=== PATIENT | female | born 1955 | race Caucasian/White ===

== ENCOUNTER 2016-09-04 11:48 | Emergency (ER) | payer OTHER ==
[~2016-09-04] VITALS: Wt 64.5 kg
[~2016-09-04 11:48] MED LIST: CALC-143 PO
[2016-09-04] MEDS ORDERED: IBUPROFEN 600 MG TAB PO ONE (13:30)
--- NOTE | 2016-09-04 13:52 | RADRPT ---
PROCEDURE: XR Right Foot. CLINICAL INDICATION: Trauma due to a fall. Right foot pain. TECHNIQUE: Three views. Frontal, lateral, and oblique. COMPARISON: None. FINDINGS: There is no fracture or dislocation. The soft tissues are normal. Articular surfaces are intact. There is no lytic or blastic lesion. There is no radiopaque foreign body. IMPRESSION: 1. Normal images of the right foot. RPTAT: QQ .Jorge A Bonner MD, MD Date Time Electronically viewed and signed by .Jorge A Bonner MD, on 09/04/2016 13:52 .R/
--- NOTE | 2016-09-04 13:52 | RADRPT ---
PROCEDURE: XR Right Ankle. CLINICAL INDICATION: Trauma. Lateral right ankle pain. TECHNIQUE: 3 views. Frontal, lateral, and oblique. COMPARISON: None. FINDINGS: There is no fracture or dislocation. The soft tissues are normal. Articular surfaces are intact. There is no lytic or blastic lesion. There is no radiopaque foreign body. IMPRESSION: 1. Normal images of the right ankle. RPTAT: QQ .Jorge A Bonner MD, MD Date Time Electronically viewed and signed by .Jorge A Bonner MD, MD on 09/04/2016 13:52 .R/
[2016-09-04] MEDS ORDERED: IBUP400T22 PO (14:23)
--- NOTE | 2016-09-04 14:38 | ERD ---
ER Documentation Chief Complaint Date/Time DATE: 09/04/16 TIME: 14:32 Chief Complaint RIGHT FOOT PAIN/SWELLING, NO INJURY HPI Patient is a 61-year-old female who presents to the emergency department with right foot pain and swelling 1 week. Patient has any trauma or falls. Patient states she has been putting Arnica gel on the affected with some alleviation of symptoms. Patient denies any fevers or chills. Patient denies any any warmth, redness, active discharge or bleeding. Patient is able to ambulate without any difficulty. Patient is also complaining of mild sore throat. Patient states her throat pain started 2 days ago. Patient denies any trismus, drooling or hyperextension of her neck. Patient denies any cough, rhinorrhea, abdominal pain, nausea, vomiting. Patient denies taking any pain medication. ROS All systems reviewed and are negative except as per history of present illness. Medications Home Meds Active Scripts Ibuprofen* (Motrin*) 400 Mg Tab, 400 MG PO Q6, #30 TAB Prov:KEELY MONTGOMERY PA-C 09/04/16 Reported Medications Calcium Citrate/Vitamin D (Citracal-Vitamin D 200 MG-250) 1 Each Tablet, 1 EACH PO BID, TAB 02/22/15 Allergies Allergies: Coded Allergies: No Known Allergy (Unverified , 09/04/16) PMhx/Soc History of Surgery: Yes (4 C-SECTIONS) Anesthesia Reaction: No Hx Neurological Disorder: No Hx Respiratory Disorders: No Hx Cardiac Disorders: Yes (HTN) Hx Psychiatric Problems: No Hx Miscellaneous Medical Probl: Yes Hx Alcohol Use: No Hx Substance Use: No Hx Tobacco Use: No Smoking Status: Never smoker FmHx Family History: No diabetes Physical Exam Vitals Vital Signs Date Time Temp Pulse Resp B/P Pulse Ox O2 Delivery O2 Flow Rate FiO2 09/04/16 14:44 73 18 137/64 99 Room Air 09/04/16 11:54 99.1 109 17 142/67 98 Physical Exam GENERAL: Well-developed, well-nourished female. Appears in no acute distress. HEAD: Normocephalic, atraumatic. No deformities or ecchymosis. EYE: Pupils equal, round, and reactive to light. EOMs intact. No conjunctival erythema. No eye discharge. ENT: External ear without any masses or tenderness. Oropharynx is pink without any tonsillar erythema or exudates. No uvula deviation. No kissing tonsils. NECK: Supple. No meningismus. Normal ROM of the neck. LUNG: Clear to auscultation bilaterally. No rhonchi, wheezing, rales or coarse breath sounds. HEART: Regular rate and rhythm. No murmurs, rubs or gallops. BACK: No midline tenderness. EXTREMITIES: Equal pulses bilaterally. No peripheral clubbing, cyanosis or edema. No unilateral leg swelling. NEUROLOGIC: Alert and oriented to person, place and time. Moving all four extremities. 5/5 strength in all extremities. Normal speech. Steady gait. SKIN: Normal color. Warm and dry. No rashes or lesions. RIGHT FOOT: No obvious deformity or ecchymosis noted. Slight swelling noted on the on the dorsal aspect of the midfoot. Skin intact. Full ROM of all toes, ankle and knee. Nontender to palpation of the tib-fib, ankle. Sensation intact to light touch. Neurovascularly intact. (Able to plantarflex, dorsiflex, evon foot, invert foot, raise big toe.) 2+ DP and DT pulses. Results 24 hrs Current Medications Medications (Trade) Dose Ordered Sig/Naren Route PRN Reason Start Time Stop Time Status Last Admin Dose Admin Ibuprofen (Motrin) 600 mg ONCE ONCE PO 09/04/16 13:30 09/04/16 13:31 DC 09/04/16 13:26 Procedures/MDM ED COURSE: The patient was stable throughout ED course. I kept the patient and/or family informed of laboratory and diagnostic imaging results throughout the ED course. DIAGNOSTIC IMAGING: Read by radiologist. DIAGNOSTIC IMAGING REPORT Patient: TIM RAMIREZ : 1955 Age: 61 Sex: F MR #: [id number] DOS: 09/04/16 1317 Ordering MD: KEELY MONTGOMERY PA-C Location: [facility] Room/Bed: PROCEDURE: XR Right Foot. CLINICAL INDICATION: Trauma due to a fall. Right foot pain. TECHNIQUE: Three views. Frontal, lateral, and oblique. COMPARISON: None. FINDINGS: There is no fracture or dislocation. The soft tissues are normal. Articular surfaces are intact. There is no lytic or blastic lesion. There is no radiopaque foreign body. IMPRESSION: 1. Normal images of the right foot. RPTAT: QQ .Jorge A Bonner MD, MD Date Time Electronically viewed and signed by .Jorge A Bonner MD, MD on 09/04/2016 13:52 .R/ CC: KEELY MONTGOMERY PA-C DIAGNOSTIC IMAGING REPORT Patient: TIM RAMIREZ : 1955 Age: 61 Sex: F MR #: [id number] DOS: 09/04/16 1318 Ordering MD: KEELY MONTGOMERY PA-C Location: [facility] Room/Bed: PROCEDURE: XR Right Ankle. CLINICAL INDICATION: Trauma. Lateral right ankle pain. TECHNIQUE: 3 views. Frontal, lateral, and oblique. COMPARISON: None. FINDINGS: There is no fracture or dislocation. The soft tissues are normal. Articular surfaces are intact. There is no lytic or blastic lesion. There is no radiopaque foreign body. IMPRESSION: 1. Normal images of the right ankle. RPTAT: QQ .Jorge A Bonner MD, MD Date Time Electronically viewed and signed by .Jorge A Bonner MD, MD on 09/04/2016 13:52 .R/ CC: KEELY MONTGOMERY PA-C PROCEDURES: None. MEDICATIONS GIVEN: Ibuprofen Patient tolerated medication well with no adverse reactions. Patient reported improvement in pain. MEDICAL DECISION MAKING: This is a 61-year-old female who presents with right foot pain 1 week. Patient denies any trauma or falls. Patient denied any redness, warmth or active discharge or bleeding. Vital signs were reviewed. Patient was afebrile. Xray imaging of the right foot and ankle were unremarkable. Given these findings, the patient's presentation is most consistent with foot sprain. I have a much lower clinical concern for ankle dislocation, tibia fracture, fibula fracture, ankle fracture, tarsal bone fracture, metatarsal fracture, phalangeal fracture, stress fracture, lisfranc injury, gout, septic joint, reactive arthritis, psoriatic arthritis, DVT, plantar fasciitis. At this time, unable to rule out any tendon and ligament injuries. PRESCRIPTIONS: Ibuprofen DISCHARGE: At this time, patient is stable for discharge and outpatient management. RICE therapy and ROM exercises were advised to avoid stiffness. I have instructed the patient to follow-up with his/her primary care physician in 1-2 days. I have discussed with the patient the possibility of needing to see an customer service specialist for further workup and imaging if the pain persists. I have instructed the patient to promptly return to the ER for any new or worsening symptoms including increased pain, swelling, redness, warmth or fever. The patient and/or family expressed understanding of and agreement with this plan. All questions were answered. Home care instructions were provided. Departure Diagnosis: Primary Impression: Foot pain Laterality: right Qualified Code: M79.671 - Right foot pain Additional Impression: Throat pain Condition: Stable Patient Instructions: Sprain Foot Referrals: LAURITA VELA (PCP) Additional Instructions: Call your primary care doctor TOMORROW for an appointment during the next 1-2 days.See the doctor sooner or return here if your condition worsens before your appointment time. Unable to rule out any ligament or tendon injuries. Patient advised to follow- up with an customer service specialist and obtain MRI imaging on an outpatient basis. KEELY MONTGOMERY PA-C September 04, 2016 14:38
[2016-09-04 14:44] VITALS: BP 137/64; PULSE 73; RESP 18
== END 2016-09-04 14:54 | disposition home or self-care (01) ==
LOC: FTE 11:48
DX: M79.671 Pain in right foot (principal); R07.0 Pain in throat; I10 Essential (primary) hypertension
CPT/HCPCS: 73610; 73630; Z7502; Z7610

== ENCOUNTER 2016-12-19 05:52 | Day surgery (SDC) | payer OTHER ==
[2016-12-18 12:09] VITALS: Ht 152.4 cm; Wt 65.5 kg
[~2016-12-19] VITALS: Ht 152.4 cm; Wt 65.5 kg
[2016-12-19] VITALS (9 sets, daily range): BP systolic 95–142; BP diastolic 54–77; PULSE 62–80; RESP 11–18
[~2016-12-19 05:52] MED LIST changes: +IBUP400T22 PO
[2016-12-19] MEDS ORDERED: METOPROLOL PO (06:30)
--- NOTE | 2016-12-19 07:34 | HPN ---
Date/Time of Note Date/Time of Note DATE: 12/19/16 TIME: 07:33 Interval H&P Admission Note Pt. seen H&P reviewed: No system changes FRANSISCO ALMONTE MD Dec 19, 2016 07:34
[2016-12-19] MEDS ORDERED: LIDOCAINE 1% (MDV) 20 ML INJ ONE (07:47)
[2016-12-19] MEDS ORDERED: MIDAZOLAM 1 MG/ML 2 ML INJ ONE (07:47)
[2016-12-19] MEDS ORDERED: FENTAnyl 50 MCG/ML VIAL ONE (07:47)
[2016-12-19] MEDS ORDERED: PROPOFOL 20 ML ONE (07:47)
[2016-12-19] MEDS ORDERED: hydrALAzine 20 MG INJ IV PRN (08:00)
[2016-12-19] MEDS ORDERED: MEPERIDINE 25 MG INJ IV PRN (08:00)
[2016-12-19] MEDS ORDERED: morphine (1 MG/ML) 10ML SYRINGE IV PRN ×2 (08:00)
[2016-12-19] MEDS ORDERED: LABETALOL HCL 20MG INJ IV PRN (08:00)
[2016-12-19] MEDS ORDERED: ONDANSETRON 4 MG INJ IV PRN (08:00)
[2016-12-19] MEDS ORDERED: FENTAnyl 50 MCG/ML VIAL IV PRN ×2 (08:00)
[2016-12-19] MEDS ORDERED: CEFAZOLIN 1 GM INJ ONE (08:16)
[2016-12-19] MEDS ORDERED: ONDANSETRON 4 MG INJ ONE (08:20)
[2016-12-19] MEDS ORDERED: DEXAMETHASONE 4 MG/ML 1 ML INJ ONE (08:21)
[2016-12-19] MEDS ORDERED: METOCLOPRAMIDE 10 MG INJ ONE (08:21)
[2016-12-19] MEDS ORDERED: ACETAMINOPHEN 1000MG/100ML IV 100 ML ONE (08:25)
[2016-12-19] MEDS ORDERED: KETOROLAC 30 MG INJ ONE (08:37)
--- NOTE | 2016-12-19 08:53 | PD.PPDC ---
F[employer]URE [employer]ER [employer] INST[employer]ER Discharge Instruction Diagnosis Final Diagnosis: vulva lesion Condition Patient Condition: Stable Diet Diet: Resume Regular Diet Activity/Restrictions Activity: May Shower Restrictions: No Sexual Activity Nothing in the Vagina No [place] No Tampons, douche Wound/Drain Care Instructions Wound/Drain Care Instructions: Wash with soap and water Keep clean and dry Follow-up Follow-up with Physician: 2, Week/Weeks Return to clinic for OBSTETRICS SPECIALIST Instructions: Fever greater than 101 Chills Surgical Instructions: Incisional Drainage Incisional Redness FRANSISCO ALMONTE MD Dec 19, 2016 08:53
--- NOTE | 2016-12-19 09:10 | OPR ---
Date/Time of Note Date/Time of Note DATE: 12/19/16 TIME: 09:08 Operative Report Preoperative Diagnosis vulva lesion Postoperative Diagnosis see path report Operation/Procedure Performed excisional vulva biopsy x2 Surgeon: FRANSISCO ALMONTE MD Anesthesia Type: general Estimated Blood Loss: minimal Transfusion Required: no Specimens vulva lesions Grafts/Implants: none Grafts/Implants none Complications: no FRANSISCO ALMONTE MD Dec 19, 2016 09:10
--- NOTE | 2016-12-19 09:56 | OPR ---
DATE OF OPERATION: 12/19/2016 PREOPERATIVE DIAGNOSIS: Vulvar lesion. POSTOPERATIVE DIAGNOSIS: 1. Hypertrophic plaque on mons and bilateral upper labia majora. 2. Hypopigmented patch near the labial fold bilateral with some hyperpigmentation. ANESTHESIA: Anesthesia. ANESTHESIOLOGIST: Gretta Prater. OPERATION PERFORMED: 1. Excisional biopsy of the vulvar on the left upper labia majora. 2. Middle labial major near the labial fold. ESTIMATED BLOOD LOSS: Negligible. OPERATIVE PROCEDURE: Under appropriate induction of general anesthesia, the patient was placed in the dorsal lithotomy position. Perineal area and vagina were prepped and draped in usual aseptic manner. On inspection, there is plaque which is approximately 3 cm in diameter, longest, a rhomboid shape, one on the inferior mons pubis and then bilaterally upper labial majora, which is about the same size, 3 lesions, and then there is a hypopigmented atrophied lesion near the both the labia majora, near the labial fold, which measures approximately 1 inch in length. First of all, on the left labia majora upper portion, that middle part of the lesion was excised and the tissue was sent to the pathology and the defect was closed with 3-0 Chromic catgut in continuous manner. No bleeding was noted. A second biopsy, which was done on the medial portion of the labia majora near the labial fold, an elliptical elective shape was taken out and the defect was closed with 3-0 Chromic catgut in continuous manner. The tissue was sent to pathology. The procedure was completed and a piece of the 0 foam gauze was laid on the lesion. The patient withstood the procedure and was sent to recovery room in good condition. Dictated By: Enriqueta Menon MD /keron/ /Document#: [id number]
== END 2016-12-19 10:40 | disposition home or self-care (01) ==
LOC: SDS 05:52
PROVIDERS: ATTEND Obstetrics & Gynecology
DX: N90.4 Leukoplakia of vulva (principal); L81.9 Disorder of pigmentation, unspecified; I10 Essential (primary) hypertension
CPT/HCPCS: 11422; 88305; J0131; J0690; J1100; J1885; J2250; J2405; J2765; J3010; Z7512; Z7610; J2270

== ENCOUNTER 2018-05-31 15:24 | Emergency (ER) | payer OTHER ==
[~2018-05-31] VITALS: Ht 165.1 cm; Wt 65.0 kg
[~2018-05-31 15:24] MED LIST changes: -IBUP400T22 PO; +METOPROLOL PO
[2018-05-31 15:29] VITALS: BP 139/80; PULSE 98; RESP 20; Ht 165.1 cm; Wt 65.0 kg
--- NOTE | 2018-05-31 16:57 | ERD ---
ER Documentation Chief Complaint Chief Complaint Complains of right leg pain x 2 weeks HPI 63-year-old female complaining of right knee pain times 2 weeks. Patient states the pain is at the medial aspect of the right knee radiates to the medial right calf, had a gradual onset. She has pain while ambulating. The pain has varying intensity from day to day. Sometimes she is unable to walk because of the pain. Denies injuries. Denies fever or chills. Denies shortness of breath. Denies history of diabetes. ROS All systems reviewed and are negative except as per history of present illness. Medications Home Meds Active Scripts Ibuprofen* (Motrin*) 600 Mg Tab, 600 MG PO Q6H PRN for PAIN AND OR ELEVATED TEMP, #30 TAB Prov:MARCUSGUILLERMINA X. PORTABLE ROUTER OPERATOR 05/31/18 Reported Medications [Metoprolol] No Conflict Check, 25 MG PO DAILY 12/19/16 Calcium Citrate/Vitamin D (Citracal-Vitamin D 200 MG-250) 1 Each Tablet, 1 EACH PO BID, TAB 02/22/15 Allergies Allergies: Coded Allergies: No Known Allergy (Unverified , 12/19/16) PMhx/Soc History of Surgery: Yes (C SECTION) Anesthesia Reaction: No Hx Neurological Disorder: No Hx Respiratory Disorders: No Hx Cardiac Disorders: Yes (HTN) Hx Psychiatric Problems: No Hx Miscellaneous Medical Probl: Yes (VULVA LESION , VIT D DEFICIENCY) Hx Alcohol Use: No Hx Substance Use: No Hx Tobacco Use: No Physical Exam Vitals Vital Signs Date Temp Pulse Resp B/P (MAP) Pulse Ox O2 O2 Flow FiO2 Time Delivery Rate 05/31/18 97.2 98 20 139/80 98 15:29 (99) Physical Exam General: Well-developed, well-nourished, conscious and coherent, in no distress Skin: Warm and dry without rash, good texture and turgor Head: Normocephalic without evidence of trauma Chest: Normal AP diameter. Good expansion without retractions. Nontender. Lungs are clear to auscultate bilaterally with good tidal volume Heart: Regular rate and rhythm. No murmur, rub, or gallops heard Pelvis: Nontender to palpation and stable to compression Extremities: Right knee tender at the medial joint line, without erythema or swelling. Pain with flexion and valgus stress. Full range of motion. Good strength bilaterally. No erythema, ecchymosis, or edema. Peripheral pulses are intact. Sensation intact Neuro: Alert and oriented 4, GCS 15. Results 24 hrs Current Medications Medications Dose Sig/Naren Start Time Status Last (Trade) Ordered Route PRN Stop Time Admin Dose Reason Admin Ibuprofen 600 mg ONCE ONCE 05/31/18 DC 05/31/18 (Motrin) PO 17:00 16:52 05/31/18 17:01 PROCEDURE: Right knee series CLINICAL INDICATION: Pain TECHNIQUE: AP, oblique, and lateral views of the right knee COMPARISON: None FINDINGS: The osseous structures are intact with no evidence of fracture or subluxation. No joint effusion is evident. The soft tissues are normal in appearance. IMPRESSION: No acute findings RPTAT: KK Physician Chad Date Time Electronically viewed and signed by Physician Chad on 05/31/2018 17:31 RL/ CC: GUILLERMINA VELAZQUEZ PORTABLE ROUTER OPERATOR Procedures/MDM 63-year-old female presents with right knee pain times 2 weeks. X-ray right knee is unremarkable. I doubt fractures or dislocations. Low suspicion for DVT or cellulitis. Is on the exam findings, I suspect the patient may have a ligamental or meniscus injury of the right knee. Patient is advised to follow- up with her PCP for orthopedic referral. The area of injury was immobilized with an Niko wrap. Patient was noted to be comfortable and neurovascularly intact both before and after the immobilization. Patient appears well, stable for discharge and outpatient management. Medical decision making shared with patient and family. Education provided to patient and family. Patient and family expressed understanding of the plan. Medications on discharge: Ibuprofen. Follow-up: Primary care provider in 1 week or return to ED if worse. Disclaimer: Inadvertent spelling and grammatical errors are likely due to EHR/dictation software use and do not reflect on the overall quality of patient care. Also, please note that the electronic time recorded on this note does not necessarily reflect the actual time of the patient encounter. Departure Diagnosis: Primary Impression: Right knee pain Chronicity: acute Qualified Codes: M25.561 - Pain in right knee Condition: Stable GUILLERMINA VELAZQUEZ NP May 31, 2018 16:56
[2018-05-31] MEDS ORDERED: IBUPROFEN 600 MG TAB PO ONE (17:00)
[2018-05-31] MEDS ORDERED: IBUP-1542 PO (17:50)
== END 2018-05-31 18:06 | disposition home or self-care (01) ==
LOC: FTE 15:24
DX: M25.561 Pain in right knee (principal); R40.2412 Glasgow coma scale score 13-15, at arrival to emergency department; I10 Essential (primary) hypertension
CPT/HCPCS: 73562; Z7502; Z7610

== ENCOUNTER 2019-01-08 07:06 | Day surgery (SDC) | payer OTHER ==
[2019-01-07 15:46] VITALS: Ht 134.6 cm; Wt 66.0 kg
[2019-01-08] VITALS (13 sets, daily range): BP systolic 107–140; BP diastolic 48–72; PULSE 62–80; RESP 16–27
[~2019-01-08] VITALS: Ht 134.6 cm; Wt 66.0 kg
[~2019-01-08 07:06] MED LIST changes: +IBUP-1542 PO
[2019-01-08] MEDS ORDERED: HYDROmorphONE 1 MG/5 ML IV SYRINGE IV PRN ×2 (09:00)
[2019-01-08] MEDS ORDERED: MEPERIDINE 25 MG INJ IV PRN (09:00)
[2019-01-08] MEDS ORDERED: ALBUTEROL 0.083% (NEB) 2.5 MG/3 ML AMP HHN PRN (09:00)
[2019-01-08] MEDS ORDERED: CEFAZOLIN 1 GM/50 ML (PMX) 50 ML IVPB SCH (09:00)
[2019-01-08] MEDS ORDERED: METOCLOPRAMIDE 10 MG INJ IV PRN (09:00)
[2019-01-08] MEDS ORDERED: ONDANSETRON 4 MG INJ IV PRN (09:00)
[2019-01-08] MEDS ORDERED: DIPHENHYDRAMINE 50 MG INJ IV PRN (09:00)
[2019-01-08] MEDS ORDERED: FENTAnyl 50 MCG/ML VIAL IV PRN ×2 (09:00)
[2019-01-08] MEDS ORDERED: MIDAZOLAM 1 MG/ML 2 ML INJ ONE (09:02)
[2019-01-08] MEDS ORDERED: FENTAnyl 50 MCG/ML VIAL ONE (09:03)
[2019-01-08] MEDS ORDERED: CEFAZOLIN 1 GM INJ ONE (09:17)
[2019-01-08] MEDS ORDERED: DEXAMETHASONE 4 MG/ML 1 ML INJ ONE (09:17)
[2019-01-08] MEDS ORDERED: LIDOCAINE 1% (MPF) 30 ML INJ ONE (09:17)
[2019-01-08] MEDS ORDERED: BUPIVACAINE 0.5% (SDV) 30 ML INJ ONE (09:17)
== END 2019-01-08 11:24 | disposition home or self-care (01) ==
LOC: SDS 07:06
PROVIDERS: ATTEND Podiatrist
DX: M21.622 Bunionette of left foot (principal)
CPT/HCPCS: 28308; J0690; J1100; J2250; J3010; L3260; Z7512; Z7610

== ENCOUNTER 2019-02-22 12:03 | Emergency (ER) | payer OTHER ==
[~2019-02-22] VITALS: Ht 147.3 cm; Wt 67.0 kg
[~2019-02-22 12:03] MED LIST changes: +HYDR-4011 PO; +NAPR-985 PO
[2019-02-22 12:20] VITALS: Ht 147.3 cm; Wt 67.0 kg
== END 2019-02-22 14:12 | disposition home or self-care (01) ==
LOC: FTE 12:03
DX: M71.21 Synovial cyst of popliteal space [Baker], right knee (principal); I10 Essential (primary) hypertension
CPT/HCPCS: 73562; 93971; Z7502